=== PATIENT | female | born 1990 | race Caucasian/White ===

== ENCOUNTER 2017-01-16 18:03 | Observation (INO) | payer OTHER ==
--- NOTE | ~2017-01-16 | HP ---
Unit #: [id number] #: [id number] Patient: JESSENIA MARIN [id number] [address] [place], [place] [address] [id number] MR#: [id number] NAME: JESSENIA MARIN ROOM: 46509 Age: 27 Sex: F Admission Date: 01/16/2017 : 1990 Attending Physician: Cheryl Sharif M.D. Primary Care Physician: Roderick Lovell M.D. HISTORY AND PHYSICAL CHIEF COMPLAINT Abscess to the left arm for three to four days. HISTORY OF PRESENT ILLNESS The patient is a 27-year-old female with history of Crohn disease, PTSD and history of IV drug abuse. The last shot was a month ago in the upper extremities and presented to the emergency room with the abscess of the left forearm. The patient stated she noted swelling of the upper extremity associated with a pocket of fullness with draining of greenish fluid. The patient stated she was having severe pain and could not tolerate anymore so she presented to the emergency room. The patient had an I and D by the nurse practitioner in the ER and is being admitted for the IV antibiotics. The patient stated she has history of a MRSA abscess in the past with history of IV drug abuse. However, the patient stated she is on the Suboxone for the rehab. Denies any fever, chills, trauma, nausea or vomiting, diaphoresis or dizziness. PAST MEDICAL HISTORY 1. History of polycystic ovarian syndrome. 2. Bipolar disorder. 3. PTSD. 4. Crohn disease. 5. History of a polysubstance overdose. PAST SURGICAL HISTORY 1. History of biopsy of uterus. 2. Surgery to left forearm for previous spider bite. HOME MEDICATIONS 1. Subutex. 2. Tizanidine. 3. Gabapentin. ALLERGIES 1. Elavil. 2. Flexeril. 3. Celexa. 4. Ibuprofen. 5. Sulfa. 6. Protonix. SOCIAL HISTORY The patient lives with her boyfriend. She smokes one pack of cigarettes daily. Does not drink alcohol. Patient stated she stopped using IV drug Unit #: [id number] #: [id number] Patient: JESSENIA MARIN abuse for the last one month. FAMILY HISTORY Reviewed and none. REVIEW OF SYSTEMS A 14-point review of systems performed and only pertinent positive findings as described above, remaining are negative. PHYSICAL EXAMINATION VITAL SIGNS: Temperature 98.6, pulse 90, respiratory rate 16, blood pressure 117/48, saturating 100% at room air. GENERAL: Patient is lying on the bed not in acute distress. HEENT: Atraumatic, normocephalic. Pupils equal, round, and reactive to light and accommodation. Extraocular movements are intact. NECK: Supple. No lymphadenopathy. LUNGS: Clear to auscultation bilaterally. No rhonchi, no wheezing. HEART: Regular rate and rhythm. ABDOMEN: Soft, positive bowel sounds. LEFT UPPER EXTREMITY: Status post I and D with cellulitis and abscess. NEUROLOGIC: Alert, awake, oriented. No gross focal motor deficit. DIAGNOSTIC STUDIES LABORATORY: WBC 9.9, hemoglobin 13.2, hematocrit 39.4, platelets 158. Lactic acid 1.7. BNP was not done by the nurse practitioner. ASSESSMENT AND PLAN 1. Cellulitis and abscess of right forearm. 2. History of IV drug abuse. PLAN 1. Admit patient to observation with telemetry. 2. Continue with IV antibiotics with clindamycin 300 mg q.8 h. and check the ESR and CRP and check the BMP. 3. Check MRSA screen. 4. Continue with contact isolation. 5. Further recommendations will follow. Dictated by Vitaliy Landis TD: 01/16/2017 19:50 JOB #: [id number] Unit #: [id number] #: [id number] Patient: JESSENIA MARIN HISTORY AND PHYSICAL X X HISTORY AND PHYSICAL
--- NOTE | ~2017-01-16 | DS ---
Unit #: [id number] #: [id number] Patient: JESSENIA MARIN [id number] [address] [place], [place] [address] [id number] Rome[place] MR#: [id number] NAME: JESSENIA MARIN ROOM: 215 Age: 27 Sex: F Admission Date: 01/16/2017 : 1990 Discharge Date: 01/17/2017 Attending Physician: Cassie De Los Santos M.D. Primary Care Physician: Roderick Lovell M.D. DISCHARGE SUMMARY PRIMARY CARE PROVIDER Dr. Roderick Lovell. PRINCIPAL DIAGNOSES 1. Left lower arm abscess, status post incision and drainage, this is likely staph infection. 2. Tobaccoism. 3. History of heroin abuse, currently being maintained on Suboxone. PROCEDURES Incision and drainage in the emergency department prior to admission. This occurred without complication. CLINICAL HISTORY AND HOSPITAL COURSE Ms. Gil is a 27-year-old female, who presents to emergency department with redness and pimple formation of left upper extremity. The patient underwent I and D in the emergency department. She was afebrile and did not have any leukocytosis. She was placed in observation for IV antibiotics. The patient has been maintained on clindamycin. Again, she remained afebrile and has not had any leukocytosis during hospitalization. Today, clinically, the wound is still mildly erythematous but with minimal drainage, and she does have iodoform packing in place. I am going to arrange for her to receive Orbactiv right after discharge, and she can follow up in the ER if symptoms worsen. DISCHARGE CONDITION Stable. DISCHARGE STATUS Discharged to home. DISCHARGE MEDICATIONS Orbactiv 1200 mg IV following discharge, Neurontin 800 mg p.o. q.6 hours, Zanaflex 6 mg p.o. q.6 hours, and Suboxone 8 mg b.i.d. Please note, no prescriptions were given. DISCHARGE INSTRUCTIONS The patient was instructed to refrain from any further tobacco use and/or IV drug use. She can increase her activity as tolerated. I will have her pack the wound twice daily with iodoform gauze. Unit #: [id number] #: [id number] Patient: JESSENIA MARIN FOLLOWUP The patient to be seen in [facility] in 1 week. Dictated by... Cassie De Los Santos M.D. AMMY/vannessa TD: 01/19/2017 05:22 JOB #: [id number] DISCHARGE SUMMARY X Cassie De Los Santos MD X DISCHARGE SUMMARY
[~2017-01-16 18:03] MED LIST: ALBUTEROL17 GM INH; AMOXICILLIN500 M1 PO; ANAPROX DS550 M1 PO; ANSAID100 MG PO; AUGMENTIN; CIPRO PO; CLEOCIN HCL300 M1 PO; CLINDAMYCIN HC300 MG PO; DARVOCET-N 1001 TA2 PO; DICYCLOMINE HCL20 MG PO; FLEXERIL10 M1 PO; FLEXERIL10 MG PO; FOLIC ACID; IBUPROFEN PO; IMODIUM A-D2 M1 PO; KEFLEX500 MG PO; LORTAB 10/500 T1 TAB PO; LORTAB 7.5-5001 TAB PO; MEDROL DOSEPAK4 MG PO; MEDROL4 MG/DOSE- PO; MOBIC PO; NAPROSYN500 MG PO; NAPROXEN500 M1 PO; NEURONTIN100 MG PO; PEN-VEE K PO; PEPCID AC20 M2 PO; PERCOCET5/325 PO; PHENERGAN PO; PHENERGAN25 M1 PO; PHENERGAN25 MG PO; PRENATAL1 TA1; PROVERA10 MG PO; PYRIDIUM PO; TORADOL10 MG PO; VICODIN 5/1 TAB 5/50 PO; VICODIN 5/500 T1 TAB PO; VOLTAREN75 MG PO
[2017-01-16 18:18] LABS: BASOPHIL% 0.5 % (0-2.5); DIFF IND NO; EOSINOPHIL# 0.1 X10e3 (0-0.7); EOSINOPHIL% 0.9 % (0.0-7.0); HEMATOCRIT 39.4 % (35.0-45.0); HEMOGLOBIN 13.2 gm/dL (12.0-16.0); LYMPHOCYTE# 2.2 X10e3 (1.0-3.5); LYMPHOCYTE% 22.3 % (17.0-45.0); MEAN CORPUSCULAR HEMOGLOBIN 29.7 PG (28-34); MEAN CORPUSCULAR HGB CONC 33.4 g/dL (30-36); MEAN PLATELET VOLUME 11.1 FL (6.5-11.5); NEUTROPHIL# 6.6 X10e3 (1.5-7.1); NEUTROPHIL% 66.3 % (40-75); PLATELET COUNT 158 X10e3 (140-420); RED BLOOD COUNT 4.43 X10e (3.90-5.30); RED CELL DISTRIBUTION WIDTH 13.3 % (11.0-15.5); WHITE BLOOD COUNT 9.9 X10e3 (4.0-10.5)
[2017-01-16 18:36] LABS: ALBUMIN SERUM 3.8 g/dL (3.5-5.0); ALKALINE PHOSPHATASE 69 U/L (32-92); ALT (SGPT) 46 U/L (10-40); AST (SGOT) 31 U/L (10-42); BILIRUBIN,TOTAL 0.3 mg/dL (0.2-2.0); BLOOD UREA NITROGEN 8 mg/dL (9-23); BUN/CREATININE RATIO 13.33; CALCIUM SERUM 8.4 mg/dL (8.4-10.2); CARBON DIOXIDE 26 mmol/L (22-31); CHLORIDE 99 mmol/L (100-111); CREATININE SERUM 0.6 mg/dL (0.6-1.4); GLOM FILT RATE Estimated ABOVE60 mL/min (>60); GLUCOSE FASTING 105 mg/dL (70-110); POTASSIUM 3.7 mmol/L (3.5-5.1); PROTEIN TOTAL SERUM 7.5 g/dL (6.0-8.3); SODIUM 133 mmol/L (135-145)
[2017-01-16] MEDS ORDERED: ZANAFLEX6 MG PO (19:53)
[2017-01-16] MEDS ORDERED: GABAPENTIN800 MG PO (19:53)
[2017-01-16] MEDS ORDERED: SUBUTEX PO (19:54)
[2017-01-17 05:39] LABS: BASOPHIL% 0.6 % (0-2.5); EOSINOPHIL# 0.2 X10e3 (0-0.7); HEMATOCRIT 37.4 % (35.0-45.0); HEMOGLOBIN 12.5 gm/dL (12.0-16.0); LYMPHOCYTE# 2.8 X10e3 (1.0-3.5); MEAN CORPUSCULAR HEMOGLOBIN 30.1 PG (28-34); MEAN CORPUSCULAR HGB CONC 33.5 g/dL (30-36); MEAN PLATELET VOLUME 10.7 FL (6.5-11.5); MONOCYTE% 11.6 % (3.0-12.0); NEUTROPHIL# 4.3 X10e3 (1.5-7.1); NEUTROPHIL% 51.8 % (40-75); PLATELET COUNT 156 X10e3 (140-420); RED BLOOD COUNT 4.16 X10e (3.90-5.30); RED CELL DISTRIBUTION WIDTH 13.3 % (11.0-15.5); WHITE BLOOD COUNT 8.3 X10e3 (4.0-10.5)
[2017-01-17 05:52] LABS: DIFF IND NO
[2017-01-17 05:59] LABS: BLOOD UREA NITROGEN 8 mg/dL (9-23); BUN/CREATININE RATIO 13.33; CARBON DIOXIDE 27 mmol/L (22-31); CHLORIDE 101 mmol/L (100-111); CREATININE SERUM 0.6 mg/dL (0.6-1.4); GLOM FILT RATE Estimated ABOVE60 mL/min (>60); GLUCOSE FASTING 89 mg/dL (70-110); POTASSIUM 3.6 mmol/L (3.5-5.1); SODIUM 134 mmol/L (135-145)
[2017-01-17] MEDS ORDERED: BUPRENORPHINE HC8 MG SL (12:38)
[2017-01-17] MEDS ORDERED: ORBACTIV400 MG IV (12:40)
== END 2017-01-17 16:27 | disposition home or self-care (01) ==
LOC: CED 18:03 → CEDOF 18:49 → C2A 20:06
PROVIDERS: Internal Medicine; Nurse Practitioner
DX: L02.414 Cutaneous abscess of left upper limb (principal); F17.210 Nicotine dependence, cigarettes, uncomplicated; Z87.898 Personal history of other specified conditions; Z79.899 Other long term (current) drug therapy; F31.9 Bipolar disorder, unspecified; K50.90 Crohn's disease, unspecified, without complications; F43.10 Post-traumatic stress disorder, unspecified; Z88.2 Allergy status to sulfonamides; Z88.8 Allergy status to other drugs, medicaments and biological substances
CPT/HCPCS: 10060; 36415; 80048; 80053; 83605; 85025; 85652; 86140; 87040; 87070; 94760; 96361; 96365; 96372; 96376; 99285; G0378; J1650

== ENCOUNTER → 2017-01-17 | Outpatient (CLI) | payer OTHER ==
[~2017-01-17] MED LIST changes: +BUPRENORPHINE HC8 MG SL; +DOXYCYCLINE HY100 M3 PO; +GABAPENTIN800 MG PO; +ORBACTIV400 MG IV; +SUBUTEX PO; +ZANAFLEX6 MG PO
== END | disposition home or self-care (01) ==
LOC: CSSDAY 16:04
DX: Z53.9 Procedure and treatment not carried out, unspecified reason (principal)
CPT/HCPCS: J2407; J7060

== ENCOUNTER 2017-02-13 08:48 | Emergency (ER) | payer OTHER ==
[~2017-02-13 08:48] MED LIST changes: -DOXYCYCLINE HY100 M3 PO
[2017-02-13] MEDS ORDERED: DOXYCYCLINE HY100 M3 PO (09:17)
[2017-02-13] MEDS ORDERED: CLEOCIN HCL300 M1 PO (09:18)
== END 2017-02-13 09:27 | disposition home or self-care (01) ==
LOC: SED 08:48
DX: L03.114 Cellulitis of left upper limb (principal); K50.90 Crohn's disease, unspecified, without complications; F17.200 Nicotine dependence, unspecified, uncomplicated
CPT/HCPCS: 96372; 99283

== ENCOUNTER 2017-02-16 20:47 | Emergency (ER) | payer OTHER ==
--- NOTE | ~2017-02-16 | CR278 ---
[facility]. [facility] A Service of [facility] & [facility] RADIOLOGY TEXT RESULTS PATIENT: JESSENIA MARIN LOCATION: SED : [birth year] UNIT #: [id number] AGE: [address]: Brandin Kelley MD SEX: F ORDER DR: [id number] [place] [id number] MR#: [id number] Acc #: [id number] NAME: JESSENIA MARIN : 1990 SEX: F STUDY DATE/TIME: 02/16/2017 20:42 UNIT: SED ROOM: STUDY DESCRIPTION: CR Wrist 2 View Lt Attending Physician: Brandin Kelley M.D. Ordering Physician: Physician Non-Staff Primary Care Physician: Roderick Lovell M.D. MEDICAL IMAGING REPORT This report is preliminary unless electronic signature is present. EXAM Left wrist 2 views, 02/16/2017 HISTORY Left wrist pain for 4 days status post fall. FINDINGS Wrist evaluation in multiple projections shows normal mineralization of the bony structures about the wrist and satisfactory articular relationship of the radius and ulna to the proximal carpal row and of the distal carpal segments to the metacarpal bases. There is no indication of fracture or dislocation, and no soft tissue radiopaque foreign body is present. No congenital defects are apparent. IMPRESSION Normal wrist. Dictated by... Oliver Keys M.D. THIS IS AN ELECTRONICALLY VERIFIED REPORT Oliver Keys M.D. at 02/17/2017 10:28 AM REJI/juancho TD: 02/17/2017 01:56 JOB #: [id number] MEDICAL IMAGING REPORT Page 1 of 1
--- NOTE | ~2017-02-16 | CR138 ---
[facility] A Service of [facility] & [facility] RADIOLOGY TEXT RESULTS PATIENT: JESSENIA MARIN LOCATION: SED : [birth year] UNIT #: [id number] AGE: [address]: Brandin Kelley MD SEX: F ORDER DR: [id number] [place] [id number] E MR#: [id number] Acc #: [id number] NAME: JESSENIA MARIN : 1990 SEX: F STUDY DATE/TIME: 02/16/2017 20:42 UNIT: SED ROOM: STUDY DESCRIPTION: CR Hand 2 Views Lt Attending Physician: Brandin Kelley M.D. Ordering Physician: Physician Non-Staff Primary Care Physician: Roderick Lovell M.D. MEDICAL IMAGING REPORT This report is preliminary unless electronic signature is present. EXAM Left hand 2 views, 02/16/2017 HISTORY Left hand pain and wrist pain for 4 days status post fall. FINDINGS AP, lateral, and oblique projections of the hand show good mineralization with normal carpal, metacarpal, and phalangeal anatomy without indication of fracture, dislocation, or soft tissue radiopaque foreign body. IMPRESSION Normal hand. Dictated by... Oliver Keys M.D. THIS IS AN ELECTRONICALLY VERIFIED REPORT Oliver Keys M.D. at 02/17/2017 10:28 AM REJI/juancho TD: 02/17/2017 01:54 JOB #: [id number] MEDICAL IMAGING REPORT Page 1 of 1
[~2017-02-16 20:47] MED LIST changes: +DOXYCYCLINE HY100 M3 PO
[2017-02-16 22:08] LABS: BASOPHIL# 0.1 X10e3 (0-0.3); BASOPHIL% 1.3 % (0-2.5); EOSINOPHIL# 0.3 X10e3 (0-0.7); EOSINOPHIL% 4.2 % (0.0-7.0); HEMATOCRIT 43.2 % (35.0-45.0); HEMOGLOBIN 14.4 gm/dL (12.0-16.0); LYMPHOCYTE# 2.7 X10e3 (1.0-3.5); LYMPHOCYTE% 39.7 % (17.0-45.0); MEAN CELL VOLUME 89.1 FL (83-96); MEAN CORPUSCULAR HEMOGLOBIN 29.7 PG (28-34); MEAN CORPUSCULAR HGB CONC 33.3 g/dL (30-36); MEAN PLATELET VOLUME 9.2 FL (6.5-11.5); MONOCYTE# 0.7 X10e3 (0-1.0); MONOCYTE% 9.5 % (3.0-12.0); NEUTROPHIL# 3.1 X10e3 (1.5-7.1); NEUTROPHIL% 45.3 % (40-75); PLATELET COUNT 210 X10e3 (140-420); RED BLOOD COUNT 4.85 X10e (3.90-5.30); RED CELL DISTRIBUTION WIDTH 14.6 % (11.0-15.5); WHITE BLOOD COUNT 6.9 X10e3 (4.0-10.5)
[2017-02-16 22:09] LABS: DIFF IND NO
[2017-02-16 22:23] LABS: CALCIUM SERUM 8.9 mg/dL (8.4-10.2); CREATININE SERUM 0.7 mg/dL (0.6-1.4); GLOM FILT RATE Estimated 117.1 mL/min (>60)
[2017-02-16 23:06] LABS: SEDIMENTATION RATE-SW ONLY 16 mm/hr (0-20)
== END 2017-02-17 00:42 | disposition home or self-care (01) ==
LOC: SED 20:47
PROVIDERS: Emergency Medicine
DX: L03.114 Cellulitis of left upper limb (principal); F17.200 Nicotine dependence, unspecified, uncomplicated; Z88.2 Allergy status to sulfonamides; Z88.6 Allergy status to analgesic agent; Z88.8 Allergy status to other drugs, medicaments and biological substances
CPT/HCPCS: 12002; 12004; 36415; 73100; 73120; 80048; 85025; 85651; 87040; 99283

== ENCOUNTER 2017-07-30 21:38 | Emergency (ER) | payer OTHER ==
[~2017-07-30] VITALS: Ht 152.4 cm; Wt 63.5 kg
[2017-07-30 22:38] LABS: AMPHETAMINE POS (NEG); BARBITURATES NEG (NEG); BENZODIAZEPINES NEG (NEG); COCAINE NEG (NEG); MARIJUANA NEG (NEG); OPIATES NEG (NEG); TRICYCLIC ANTIDEPRESSANTS NEG (NEG); U METHADONE NEG (NEG)
== END 2017-07-31 00:44 | disposition home or self-care (01) ==
LOC: SED 21:38
PROVIDERS: Emergency Medicine
DX: T40.1X1A Poisoning by heroin, accidental (unintentional), initial encounter (principal); F17.210 Nicotine dependence, cigarettes, uncomplicated; Z88.2 Allergy status to sulfonamides; Z88.8 Allergy status to other drugs, medicaments and biological substances
CPT/HCPCS: 80307; 84703; 99284